=== PATIENT | male | born 1965 | race Hispanic/Latino ===

== ENCOUNTER 2021-09-07 18:11 | Emergency (ER) | payer OTHER, SELFPAY ==
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
[2021-09-07 18:32] VITALS: BP 129/98; PULSE 77; RESP 18; TEMP 36.2; O2SAT 98
== END 2021-09-07 19:47 | disposition home or self-care (01) ==
PROVIDERS: Emergency Provider Nurse Practitioner
DX: M54.2 Cervicalgia (principal); S39.012A Strain of muscle, fascia and tendon of lower back, initial encounter; V43.52XA Car driver injured in collision with other type car in traffic accident, initial encounter; Z87.891 Personal history of nicotine dependence
CPT/HCPCS: 72050; 72072; 99203; G0463

== ENCOUNTER 2021-09-09 10:40 | Emergency (ER) | payer OTHER, SELFPAY ==
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
--- NOTE | 2021-09-09 10:43 | PC.NURSE ---
Speech clear and appropriate, posture normal, steady gait. Skin signs and breathing WNL.
[2021-09-09 11:41] VITALS: BP 164/98; PULSE 65; RESP 18; TEMP 36.3; O2SAT 98
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
[2021-09-09] MEDS: ONDANSETRON INJ 4 MG/2 ML VIAL IV PUSH (12:37)
[2021-09-09 14:26] VITALS: BP 139/100; PULSE 64; RESP 18; O2SAT 98
== END 2021-09-09 14:27 | disposition home or self-care (01) ==
PROVIDERS: Emergency Provider Emergency Medicine
DX: S09.90XD Unspecified injury of head, subsequent encounter (principal); S16.1XXD Strain of muscle, fascia and tendon at neck level, subsequent encounter; R91.1 Solitary pulmonary nodule; Z87.891 Personal history of nicotine dependence; V89.2XXD Person injured in unspecified motor-vehicle accident, traffic, subsequent encounter
CPT/HCPCS: 70450; 72125; 72128; 72131; 96365; 96375; 99284; J0131; J2405